=== PATIENT | female | born 2000 | race Two or more races ===

== ENCOUNTER 2023-05-19 08:46 | Emergency (ER) | payer SELFPAY ==
[2023-05-19 08:56] VITALS: BP 116/79; PULSE 71; RESP 20; TEMP 97.6; BMI 22.2
[2023-05-19] MEDS ORDERED: AMOXICILLIN 500 MG CAPSULE (FP) PO ONE (12:11)
[2023-05-19] MEDS ORDERED: AZITHROMYCIN 250 MG TABLET PO ONE (12:12)
[2023-05-19] MEDS ORDERED: AZITHROMYCIN 500 MG TABLET ONE (12:17)
[2023-05-19] MEDS ORDERED: AMOXICILLIN 500 MG CAPSULE (FP) ONE (12:18)
== END 2023-05-19 12:29 | disposition home or self-care (01) ==
LOC: JERFT 08:46
DX: R05.9 Cough, unspecified (principal); R50.9 Fever, unspecified; J18.9 Pneumonia, unspecified organism; Z20.822 Contact with and (suspected) exposure to COVID-19
CPT/HCPCS: 0241U-QW; 71046-TC-FY; 99284-25